=== PATIENT | female | born 1985 | race Caucasian/White ===

== ENCOUNTER → 2022-07-18 | Outpatient (CLI) | payer OTHER ==
--- NOTE | 2022-07-18 15:48 | US ---
EXAMINATION TYPE: US thyroid st tissue head/neck DATE OF EXAM: 07/18/2022 COMPARISON: NONE CLINICAL INDICATION: Female, 37 years old with history of E05.90 THYROTOXICOSIS, UNSP WITHOUT THYROTO XIC CRI; Weight loss. Abnormal labs. GLAND SIZE: Right Lobe: 5.8 x 1.9 x 1.47 cm Overall Parenchyma: heterogenous Left Lobe: 5.4 x 1.9 x 1.9 cm Overall Parenchyma: heterogeneous Isthmus Thickness: 0.7 cm NODULES RIGHT: # of nodules measured on right: 0 LEFT: # of nodules measured on left: 1 1. 0.6 x 0.5 x 0.5 cm, lower mid, , hyperechoic nodule, which is wider than tall, with smooth margin s, with echogenic foci. Prior size: No prior ISTHMUS: # of nodules measured in the isthmus: 0 Bilateral neck scanned, no evidence of lymphadenopathy. IMPRESSION: Thyroidomegaly with underlying glandular heterogeneity. Subcentimeter nodule left thyroid lobe.
[2022-07-18 22:26] LABS: T4, Free (Free Thyroxine) 0.77 ng/dL (0.800-1.800)
== END | disposition home or self-care (01) ==
LOC: RADUSWWP 15:15
PROVIDERS: ATTEND Internal Medicine
DX: E04.1 Nontoxic single thyroid nodule (principal); E05.90 Thyrotoxicosis, unspecified without thyrotoxic crisis or storm
CPT/HCPCS: 76536; 84439; 84443; 84445; 84481; 86376

== ENCOUNTER 2022-11-16 21:37 | Emergency (ER) | payer OTHER ==
[2022-11-16] MEDS ORDERED: SODIUM CHLORIDE 0.9% 1,000 ML IV STA (22:06)
[2022-11-16] MEDS ORDERED: KETOROLAC 15 MG/ML 1 ML VIAL IVP STA (22:07)
[2022-11-16 22:45] LABS: Partial Thromboplastin Time 24.8 sec (22.0-30.0); Prothrombin Time 10.7 sec (9.0-12.0)
[2022-11-16 22:52] LABS: Basophils # (A) 0.1 k/uL (0-0.2); Basophils % (A) 1 %; Eosinophils # (A) 0.2 k/uL (0-0.7); Eosinophils % (A) 3 %; HCT 36.4 % (34.0-46.0); HGB 12.8 gm/dL (11.4-16.0); Lymphocytes # (A) 2.3 k/uL (1.0-4.8); Lymphocytes % (A) 31 %; MCH 31.8 pg (25.0-35.0); MCHC 35.1 g/dL (31.0-37.0); MCV 90.8 fL (80.0-100.0); Mean Platelet Volume 7.3; Monocytes # (A) 0.5 k/uL (0-1.0); Monocytes % (A) 6 %; Neutrophils # (A) 4.3 k/uL (1.3-7.7); Neutrophils % (A) 58 %; Platelet Count 236 k/uL (150-450); RBC 4.01 m/uL (3.80-5.40); RDW 12.2 % (11.5-15.5); WBC 7.4 k/uL (3.8-10.6)
[2022-11-16 22:53] LABS: ALT 25 U/L (4-34); AST 24 U/L (14-36); African American GFR (CKD) >90 (>60 ml/min/1.73 sqM); Albumin 4.2 g/dL (3.5-5.0); Alkaline Phosphatase 74 U/L (38-126); Anion Gap 8 mmol/L; Blood Urea Nitrogen 11 mg/dL (7-17); Calcium 8.9 mg/dL (8.4-10.2); Carbon Dioxide 24 mmol/L (22-30); Chloride 105 mmol/L (98-107); Glucose 100 mg/dL (74-99); Lipase 121 U/L (23-300); Magnesium 1.9 mg/dL (1.6-2.3); Non-African American GFR(CKD) >90 (>60 ml/min/1.73 sqM); Potassium 3.8 mmol/L (3.5-5.1); Sodium 137 mmol/L (137-145); Total Bilirubin 0.4 mg/dL (0.2-1.3); Total Protein 7.1 g/dL (6.3-8.2)
--- NOTE | 2022-11-16 23:17 | ED ---
Chest Pain HPI - General Chief Complaint: Chest Pain Stated Complaint: Chest Pain Time Seen by Provider: 11/16/22 21:56 Source: patient Mode of arrival: wheelchair Limitations: no limitations - History of Present Illness Initial Comments: Patient is a 37-year-old female who presents the emergency department for chest pain. Patient has had intermittent chest pain for the past couple months. She has never seen a community health coordinator or had testing done. She reports sharp pain in the left side of her chest. States it usually lasts a couple minutes but this episode has been ongoing since yesterday. She denies any back pain. Denies numbness and tingling. No nausea or vomiting. States she has felt mildly short of breath before with the chest pain but none currently. No leg pain or swelling. She does not use tobacco but does use vape. No history of cardiac disease. No family history of cardiac disease. Social alcohol use. - Related Data Home Medications Medication Instructions Recorded Confirmed Cyanocobalamin (Vitamin B-12) 1,000 mcg PO DAILY 11/16/22 11/16/22 [Vitamin B-12] Previous Rx's Medication Instructions Recorded Ibuprofen [Motrin] 400 mg PO Q6HR PRN #30 tab 11/16/22 Allergies Allergy/AdvReac Type Severity Reaction Status Date / Time No Known Allergies Allergy Verified 11/16/22 22:11 Review of Systems ROS Statement: Those systems with pertinent positive or pertinent negative responses have been documented in the HPI. ROS Other: All systems not noted in ROS Statement are negative. Past Medical History Past Medical History: No Reported History History of Any Multi-Drug Resistant Organisms: MRSA Date of last positivie culture/infection: 2014 MDRO Source:: lt leg Past Surgical History: Section, Hysterectomy Past Psychological History: Anxiety Smoking Status: Vaper Past Alcohol Use History: None Reported Past Drug Use History: None Reported General Exam Limitations: no limitations General appearance: alert Eye exam: Present: normal appearance, PERRL, EOMI. Absent: scleral icterus, conjunctival injection, periorbital swelling Respiratory exam: Present: normal lung sounds bilaterally, chest wall tenderness (left with palpation). Absent: respiratory distress, wheezes, rales, rhonchi, stridor Cardiovascular Exam: Present: regular rate, normal rhythm, normal heart sounds. Absent: systolic murmur, diastolic murmur, rubs, gallop, clicks GI/Abdominal exam: Present: soft, normal bowel sounds. Absent: distended, tenderness, guarding, rebound, rigid Extremities exam: Present: normal inspection, full ROM, normal capillary refill. Absent: tenderness, pedal edema, joint swelling, calf tenderness Neurological exam: Present: alert Psychiatric exam: Present: normal affect, normal mood Skin exam: Present: warm, dry, intact, normal color. Absent: rash Course Vital Signs 11/16/22 11/16/22 11/17/22 21:46 23:00 00:00 Temperature 98.8 F Pulse Rate 76 52 L 61 Respiratory 20 16 17 Rate Blood Pressure 121/78 106/77 112/67 O2 Sat by Pulse 100 100 97 Oximetry 11/17/22 00:13 Temperature 98.7 F Pulse Rate 61 Respiratory 18 Rate Blood Pressure 101/62 O2 Sat by Pulse 97 Oximetry Chest Pain MDM - [facility] EKG taken at 22:00, interpreted by myself Sinus rhythm with first-degree AV block Ventricular rate 66, MT interval 219, QRS duration 85, QTc 405 Was pt. sent in by a medical professional or institution (Dr. PA, METEOROLOGICAL EQUIPMENT REPAIRER, urgent care, hospital, or fdc...) When possible be specific @ -No Did you speak to anyone other than the patient for history (EMS, parent, family, police, friend...)? What history was obtained from this source @ -No Did you review nursing and triage notes (agree or disagree)? Why? @ -I reviewed and agree with nursing and triage notes Were old charts reviewed (outside hosp., previous admission, EMS record, old EKG, old radiological studies, urgent care reports/EKG's, fdc records)? Report findings @ -No old charts were reviewed Differential Diagnosis (chest pain, altered mental status, abdominal pain women, abdominal pain men, vaginal bleeding, weakness, fever, dyspnea, syncope, headache, dizziness, GI bleed, back pain, seizure, CVA, palpatations, mental health)? @ -Differential Chest Pain: Stable Angina, Unstable Angina, STEMI, NSTEMI Aortic Dissection, Pneumothorax, Musculoskeletal, Esophageal Spasm GERD, Cholecystitis, Pancreatitis, Zoster, this is not meant to be an all-inclusive list. EKG interpreted by me (3pts min.). @ -As above X-rays interpreted by me (1pt min.). @ -[No acute cardiopulmonary process CT interpreted by me (1pt min.). @ -None done U/S interpreted by me (1pt. min.). @ -None done What testing was considered but not performed or refused? (CT, X-rays, U/S, labs)? Why? @ -None What meds were considered but not given or refused? Why? @ -None Did you discuss the management of the patient with other professionals (professionals i.e. Dr., PA, METEOROLOGICAL EQUIPMENT REPAIRER, lab, RT, psych nurse, social science teacher, painter helper sign, teacher, fisheries enforcement officer, rn case mgr)? Give summary @ -No Was smoking cessation discussed for >3mins.? @ -No Was critical care preformed (if so, how long)? @ -No Were there social determinants of health that impacted care today? How? (Homele ssness, low income, unemployed, alcoholism, drug addiction, transportation, low edu. Level, literacy, decrease access to med. care, correction, rehab)? @ -No Was there de-escalation of care discussed even if they declined (Discuss DNR or withdrawal of care, Hospice)? DNR status @ -No What co-morbidities impacted this encounter? (DM, HTN, Smoking, COPD, CAD, Cancer, CVA, ARF, Chemo, Hep., AIDS, mental health diagnosis, sleep apnea, morbid obesity)? @ -None Was patient admitted / discharged? Hospital course, mention meds given and route, prescriptions, significant lab abnormalities, going to OR and other pertinent info. @ Patient presenting for chest pain. Patient is well-appearing and in no apparent distress. Cardiac workup negative. Chest pain is atypical did improve with Toradol. Patient will be discharged. We discussed return parameters Undiagnosed new problem with uncertain prognosis? @ -No Drug Therapy requiring intensive monitoring for toxicity (Heparin, Nitro, Insulin, Cardizem)? @ -No Were any procedures done? @ -No Diagnosis/symptom? @ -Atypical chest pain Acute, or Chronic, or Acute on Chronic? @ Acute Uncomplicated (without systemic symptoms) or Complicated (systemic symptoms)? @ -Uncomplicated Side effects of treatment? @ -No Exacerbation, Progression, or Severe Exacerbation? @ -No Poses a threat to life or bodily function? How? (Chest pain, [place], [place], pneumonia, PE, COPD, DKA, ARF, appy, cholecystitis, CVA, Diverticulitis, Homicidal, Suicidal, threat to staff... and all critical care pts) @ -No Dr. Christina is my attending Disposition Clinical Impression: Atypical chest pain Disposition: HOME SELF-CARE Condition: Good Instructions (If sedation given, give patient instructions): Chest Pain (ED) Additional Instructions: Take medication as directed. Please follow-up with your primary care provider in 1-2 days. Return to the emergency department if you experience new, concerning, or worsening symptoms. Prescriptions: Ibuprofen [Motrin] 400 mg PO Q6HR PRN #30 tab PRN Reason: Pain Is patient prescribed a controlled substance at d/c from ED?: No Referrals: Lauryn Sosa MD [Primary Care Provider] - 1-2 days
[2022-11-17 00:07] VITALS: PULSE 61
--- NOTE | 2022-11-17 00:09 | XR ---
EXAM: XR Chest, 2 Views CLINICAL HISTORY: ITS.REASON XR Reason: Chest Pain TECHNIQUE: Frontal and lateral views of the chest. COMPARISON: No relevant prior studies available. FINDINGS: Lungs: Unremarkable. No consolidation. Pleural space: Unremarkable. No pneumothorax. Heart: Unremarkable. No cardiomegaly. Mediastinum: Unremarkable. Bones/joints: Unremarkable. IMPRESSION: Normal chest x-rays.
[2022-11-17 00:15] VITALS: BP 101/62; RESP 18; TEMP 98.7
== END 2022-11-17 00:25 | disposition home or self-care (01) ==
LOC: EC 21:37
DX: I44.0 Atrioventricular block, first degree (principal); F41.9 Anxiety disorder, unspecified; F17.290 Nicotine dependence, other tobacco product, uncomplicated; Z79.899 Other long term (current) drug therapy
CPT/HCPCS: 99285 ×2; 96374 ×2; 96361 ×2; 36415; 93005; 80053; 83690; 83735; 84484; 85025; 85610; 85730; 71046; J1885